=== PATIENT | male | born 2000 | race Caucasian/White ===

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

== ENCOUNTER 2023-03-13 18:20 | Emergency (ER) | payer OTHER, SELFPAY ==
--- NOTE | ~2023-03-13 | CT_ITS ---
EXAMINATION: CT ABDOMEN AND PELVIS WITH CONTRAST CLINICAL INFORMATION: Abdominal pain. Question of appendicitis. COMPARISON: 06/23/2020 TECHNIQUE: Multidetector volumetric images were obtained from the superior aspect of the liver through the pubic symphysis following administration 85 mL of Omnipaque 350 intravenous contrast. Sagittal and coronal reformatted images were obtained on the technologist's workstation. Oral contrast: No This CT examination was performed using dose optimization techniques as appropriate, variously including the following: *Automated exposure control *Adjustment of mA and/or kV according to patient size (this includes techniques or standardized protocols for targeted exams where dose is matched to indication/reason for exam; i.e. extremities or head) *Use of iterative reconstruction technique DLP: 349 mGy-cm FINDINGS: LUNG BASES: The visualized lung bases are unremarkable. LIVER, GALLBLADDER, AND BILIARY TREE: The liver is normal in size, shape, and attenuation. No focal hepatic lesion or biliary ductal dilatation is present. The gallbladder is unremarkable with no evidence of radiopaque gallstones, gallbladder wall thickening, or obvious pericholecystic inflammatory changes. PANCREAS: Unremarkable. SPLEEN: Unremarkable. ADRENAL GLANDS: Unremarkable. KIDNEYS AND URETERS: The kidneys are normal in size, shape, and attenuation. No hydronephrosis, hydroureter, or calculi seen. No perinephric stranding. BLADDER: Unremarkable. GASTROINTESTINAL TRACT: The small and large bowel are unremarkable. The appendix is normal. ABDOMINAL WALL: No significant hernia is appreciated. LYMPH NODES: Normal. VASCULAR: Unremarkable. PELVIC VISCERA: Unremarkable. OSSEOUS STRUCTURES: Unremarkable. CT/CT abdomen pelvis w IV con IMPRESSION: No acute findings within the abdomen or pelvis to explain the patient's symptomatology. Fleischner guidelines were followed.
--- NOTE | 2023-03-13 18:27 | ED_ITS ---
HPI - General Adult General Chief complaint: Fever Stated complaint: abd pain/v/d Time Seen by Provider: 03/13/23 22:28 Source: patient Mode of arrival: ambulatory Limitations: no limitations History of Present Illness HPI narrative: 22-year-old male presents to ED for abdominal pain, vomiting, and diarrhea since this morning. Patient states periumbilical pain. Patient denies any chest pain or shortness of breath. Patient denies anyone else at home having similar symptoms. Related Data Previous Rx's Medication Instructions Recorded ibuprofen 400 mg tablet 400 mg PO Q6H PRN pain #28 tabs 08/14/20 ondansetron HCl 4 mg tablet 4 mg PO Q6H PRN nausea and 08/14/20 (Zofran) vomiting #8 tabs Allergies Allergy/AdvReac Type Severity Reaction Status Date / Time No Known Allergies Allergy Verified 10/14/20 07:25 [No Known Allergies*] Review of Systems Review of Systems: Fever, abdominal pain, diarrhea, vomitting. PMFSH Past Medical History Medical History (Updated 03/14/23 @ 01:55 by LILIANA Kendrick) Anxiety Encounter for well adult exam without abnormal findings Gastritis Social History Social History (Updated 10/14/20 @ 07:27 by Jaja Osorio CMA) Household Members: Family Alcohol intake: never Smoked in Last 30 Days: No Use of substances other than those prescribed or required for medical reasons: No Substance Use Type: Marijuana Advance Directives: No Advance Directives Information Provided: Yes Current occupational status: employed Current occupation: [employer] [facility] [place] Physical Exam ED Vital Signs: Vital Signs - 24 hr 03/13/23 18:28 03/13/23 22:18 03/14/23 01:00 Temperature 97.9 F 98.0 F 98.5 F Pulse Rate 56 66 72 Respiratory Rate 18 16 18 Blood Pressure 126/62 115/59 L 125/68 Pulse Oximetry 100 96 100 Oxygen Delivery Method Room Air Room Air Room Air BMI result Body Mass Index 22.1 Const General: cooperative, healthy appearing, comfortable, no acute distress, well developed, alert, awake and Physically active Orientation/consciousness: oriented to person, oriented to place, oriented to time and patient oriented x3 HENMT Head: Yes normal to inspection, Yes No palpable skull fracture present, Yes normocephalic, Yes atraumatic and No abrasion Eyes General: appearance normal, both eyes and all related structures Neck Neck: Yes normal visual inspection, Yes full ROM, Yes no lymphadenopathy, Yes no meningeal signs, Yes trachea midline, Yes supple, No anterior neck swelling and No tender Chest Chest palpation & inspection: normal inspection of the chest and normal palpation of entire chest wall Resp Effort & Inspection: normal respiratory effort and able to speak in complete sentences Auscultation: clear to auscultation bilaterally Cardio Jugular venous distension: no JVD Heart sounds: S1 normal heart sound present and S2 normal heart sound present GI Inspection: Yes normal to inspection and No abdominal wall ecchymosis Palpation (GI): Soft to palpation, not firm, Tenderness to palpation present (GI) periumbilically, no guarding and not rigid General: No CVA tenderness and Yes no CVA tenderness Back/Spine/Pelvis Back: no CVA tenderness, No CVA tenderness and No back tenderness Skin General skin exam: no rashes or lesions noted, elasticity normal and turgor normal Neuro General: oriented to person, oriented to place, oriented to time, patient oriented x3, gait normal, tone normal, moves all extremities, Normal light touch and pain sensation, no meningeal signs, no focal motor deficits, CN's II-XI intact bilaterally and normal sensation to monofilament Extrem General: Yes normal to inspection and Yes full ROM Course Course Course Narrative: RME performed by Steffany Dover PA-C. Patient is a 22 year old assigned male at presenting to the emergency department with abdominal pain, nausea, and vomiting. Labs and swab ordered. Patient placed back in the waiting room pending room availability and results. Medications Administered Discontinued Medications Generic Name Dose Route Start Last Admin Trade Name Freq PRN Reason Stop Dose Admin Sodium Chloride 1,000 mls @ 999 mls/hr 03/13/23 22:47 03/13/23 23:06 Ns IV 03/13/23 23:47 999 mls/hr .Q1H1M STA Administration Iohexol 85 ml 03/13/23 23:23 03/13/23 23:23 Iohexol 350 Mg/Ml 100 Ml Infus..Btl IV 03/13/23 23:24 85 ml ONCE ONE Administration Medical Decision Making Medical Decision Making MDM Narrative: 22-year-old male presents to ED for nausea vomiting abdominal pain and diarrhea since this morning. Patient mild leukocytosis. With periumbilical tenderness sent for CT scan to rule out any appendicitis diverticulitis or any abdominal etiology. CT scan normal. Patient denies any genital urinary symptoms. UA negative for UTI. Viral gastroenteritis. Patient is safe for discharge. Patient received fluids. Patient's pain level improved to a 3. Patient racquet educated on brat diet Differential Diagnosis Differential Diagnoses: The differential diagnosis associated with the presentation includes (Appendicitis, colitis, UTI, kidney stone, diverticulitis, cholecystitis, pancreatitis) Admission/Observation Consideration of admission/observation: Escalation of care including admission/observation considered Lab Data MDM Lab Attestation statement: I reviewed the patient's lab results. 03/13/23 18:56 03/13/23 18:56 Labs: Lab Results 03/13/23 03/13/23 03/13/23 Range/Units 18:56 18:56 18:56 WBC 12.6 H (4.8-10.8) X10*3/uL RBC 5.33 (4.60-5.80) X10*6/uL Hgb 16.4 (14.0-18.0) g/dl Hct 45.0 (42.0-52.0) % MCV 84.4 (80.0-98.0) fL MCH 30.8 (27.0-33.0) pg MCHC 36.4 H (31.0-36.0) g/dl RDW 10.8 L (11.0-16.0) % Plt Count 380 (160-400) X10*3/uL MPV 8.5 L (9.4-12.4) fL Immature Gran % (Auto) 0.3 (0.0-0.4) % Neut % (Auto) 90.5 H (45-73) % Lymph % (Auto) 5.1 L (20-40) % Lynn % (Auto) 3.7 (2-11) % Eos % (Auto) 0.0 (0-4) % Baso % (Auto) 0.4 (0-2) % Lymph # (Auto) 0.6 L (1.2-4.9) X10*3/uL Lynn # (Auto) 0.5 (0.1-1.2) X10*3/uL Eos # (Auto) 0.0 (0.0-0.4) X10*3/uL Baso # (Auto) 0.1 (0.0-0.2) X10*3/uL Abs Immat Gran (auto) 0.04 H (0.00-0.03) X10*3/uL Absolute Neuts (auto) 11.4 H (2.0-8.3) x10*3/uL Absolute Nucleated RBC 0.000 (0.0-0.012) X10*3/uL Nucleated RBC % (auto) 0.0 (0.0-0.2) /100WBC Smear Tech's Comments VERIFIED Sodium 140 (135-145) mmol/L Potassium 4.1 (3.3-5.1) mmol/L Chloride 108 (96-108) mmol/L Carbon Dioxide 20 L (22-29) mmol/L Anion Gap 16 (12-20) BUN 10 (9-16) mg/dL Creatinine 0.91 (0.5-1.4) mg/dL Estim Creat Clear Calc 123.5 Estimated GFR > 60 Random Glucose 136 H (60-115) mg/dL Calcium 9.6 (8.4-10.2) mg/dL Magnesium 1.9 (1.6-2.6) mg/dL Total Bilirubin 0.7 (0.0-1.0) mg/dL AST 21 (5-37) U/L ALT 19 (0-40) U/L Alkaline Phosphatase 64 (39-117) U/L Total Protein 7.5 (6.5-8.0) g/dL Albumin 4.6 (3.5-5.0) g/dL Urine Color Urine Appearance Urine pH (5.0-9.0) Ur Specific [place] (1.005-1.025) Urine Protein (Neg-Trace) mg/dL Urine Glucose (UA) (Negative) mg/dL Urine Ketones (Negative) mg/dL Urine Blood (Negative) Urine Nitrite (Negative) Ur Leukocyte Esterase (Negative) COVID-19 ([facility]) Negative (Negative) COVID-19 Clin Com See Note 03/14/23 Range/Units 01:01 WBC (4.8-10.8) X10*3/uL RBC (4.60-5.80) X10*6/uL Hgb (14.0-18.0) g/dl Hct (42.0-52.0) % MCV (80.0-98.0) fL MCH (27.0-33.0) pg MCHC (31.0-36.0) g/dl RDW (11.0-16.0) % Plt Count (160-400) X10*3/uL MPV (9.4-12.4) fL Immature Gran % (Auto) (0.0-0.4) % Neut % (Auto) (45-73) % Lymph % (Auto) (20-40) % Lynn % (Auto) (2-11) % Eos % (Auto) (0-4) % Baso % (Auto) (0-2) % Lymph # (Auto) (1.2-4.9) X10*3/uL Lynn # (Auto) (0.1-1.2) X10*3/uL Eos # (Auto) (0.0-0.4) X10*3/uL Baso # (Auto) (0.0-0.2) X10*3/uL Abs Immat Gran (auto) (0.00-0.03) X10*3/uL Absolute Neuts (auto) (2.0-8.3) x10*3/uL Absolute Nucleated RBC (0.0-0.012) X10*3/uL Nucleated RBC % (auto) (0.0-0.2) /100WBC Smear Tech's Comments Sodium (135-145) mmol/L Potassium (3.3-5.1) mmol/L Chloride (96-108) mmol/L Carbon Dioxide (22-29) mmol/L Anion Gap (12-20) BUN (9-16) mg/dL Creatinine (0.5-1.4) mg/dL Estim Creat Clear Calc Estimated GFR Random Glucose (60-115) mg/dL Calcium (8.4-10.2) mg/dL Magnesium (1.6-2.6) mg/dL Total Bilirubin (0.0-1.0) mg/dL AST (5-37) U/L ALT (0-40) U/L Alkaline Phosphatase (39-117) U/L Total Protein (6.5-8.0) g/dL Albumin (3.5-5.0) g/dL Urine Color Yellow Urine Appearance Clear Urine pH 8.0 (5.0-9.0) Ur Specific [place] >= 1.030 H (1.005-1.025) Urine Protein Negative (Neg-Trace) mg/dL Urine Glucose (UA) Negative (Negative) mg/dL Urine Ketones 15 (Negative) mg/dL Urine Blood Negative (Negative) Urine Nitrite Negative (Negative) Ur Leukocyte Esterase Negative (Negative) COVID-19 ([facility]) (Negative) COVID-19 Clin Com Independent Interpretation I performed an independent interpretation of an: CT Scan Radiology Impression Discussion of test interpretation with radiology: I have reviewed the radiologist's reading. Prescription Management I considered prescription management with: Pain Medication Discharge Plan Discharge Clinical Impression: Gastroenteritis Patient Disposition: Home, Self-Care Instructions: Gastroenteritis (ED) Additional Instructions: Recommend oral hydration and brat diet ( Banna,rice, applesauce, and toast). Return to the ED for any worsening abdominal pain, fever, chills, diarrhea, blood in stool, dysuria, hematuria, or any other concerning symptoms. Please follow-up with primary care provider Prescriptions: No Action ondansetron HCl [Zofran] 4 mg tablet 4 mg PO Q6H PRN (Reason: nausea and vomiting) Qty: 8 0RF ibuprofen 400 mg tablet 400 mg PO Q6H PRN (Reason: pain) Qty: 28 0RF Stand Alone Forms: Work/School Release Print Language: Cymro
[2023-03-13 18:28] VITALS: BP 126/62; PULSE 56; RESP 18; TEMP 36.6; O2SAT 100; BMI 22.1
[2023-03-13 19:09] LABS: Basophils Absolute Auto 0.1 X10*3/uL (0.0-0.2); Basophils Percent Auto 0.4 % (0-2); Hemoglobin 16.4 g/dl (14.0-18.0); Imm Gran Abs Auto 0.04 X10*3/uL (0.00-0.03); Imm Gran Pct Auto 0.3 % (0.0-0.4); Lymphocytes Absolute Auto 0.6 X10*3/uL (1.2-4.9); Lymphocytes Percent Auto 5.1 % (20-40); MANUAL DIFF FLAG SCAN; Mean Corpuscular HGB Conc 36.4 g/dl (31.0-36.0); Mean Corpuscular Hemoglobin 30.8 pg (27.0-33.0); Mean Corpuscular Volume 84.4 fL (80.0-98.0); Mean Platelet Volume 8.5 fL (9.4-12.4); Monocytes Absolute Auto 0.5 X10*3/uL (0.1-1.2); Monocytes Percent Auto 3.7 % (2-11); Neutrophils Absolute Auto 11.4 x10*3/uL (2.0-8.3); Neutrophils Percent Auto 90.5 % (45-73); Platelet Count 380 X10*3/uL (160-400); Red Blood Count 5.33 X10*6/uL (4.60-5.80); Red Cell Distribution Width 10.8 % (11.0-16.0); SCAN SMEAR FLAG 1; White Blood Count 12.6 X10*3/uL (4.8-10.8)
[2023-03-13 19:16] LABS: COVID-19 Test Negative (Negative); IDNOW Serial# BCCEAD1C
[2023-03-13 19:29] LABS: SLIDE REVIEW VERIFIED
[2023-03-13 19:31] LABS: Alanine Aminotransferase 19 U/L (0-40); Albumin Level 4.6 g/dL (3.5-5.0); Alkaline Phosphatase 64 U/L (39-117); Anion Gap 16 (12-20); Aspartate Amino Transferase 21 U/L (5-37); Bilirubin Total 0.7 mg/dL (0.0-1.0); Blood Urea Nitrogen 10 mg/dL (9-16); Calcium 9.6 mg/dL (8.4-10.2); Carbon Dioxide 20 mmol/L (22-29); Chloride 108 mmol/L (96-108); Creatinine Clr Calc Pharmacy 123.5; Estimated Glomerular Filt Rate > 60; Glucose Random 136 mg/dL (60-115); Magnesium 1.9 mg/dL (1.6-2.6); Potassium 4.1 mmol/L (3.3-5.1); Sodium 140 mmol/L (135-145); Total Protein 7.5 g/dL (6.5-8.0)
[2023-03-13 22:18] VITALS: BP 115/59; PULSE 66; RESP 16; TEMP 36.7; O2SAT 96
[2023-03-13] MEDS: 0.9 % Sodium Chloride 1,000 ML 999 ML IV (23:06)
[2023-03-13] MEDS: iohexoL 350 MG/ML 100 ML INFUS..BTL 85 ML IV (23:23)
[2023-03-14 01:00] VITALS: BP 125/68; PULSE 72; RESP 18; TEMP 36.9; O2SAT 100
[2023-03-14 01:07] LABS: Appearance Urine Clear; Color Urine Yellow; Glucose Urine UA Negative (Negative); Leukocyte Esterase Urine Negative (Negative); Nitrite Urine Negative (Negative); Specific Gravity - Urine >= 1.030 (1.005-1.025); Urine Blood Negative (Negative); Urine Ketones 15 mg/dL (Negative); Urine Protein Negative (Neg-Trace)
--- NOTE | 2023-03-14 01:07 | PC.NURSE ---
Patient alert and oriented sitting on the edge of his bed. Patient states that his pain has resolved at this point. Patient at this time is well appearing.
--- NOTE | 2023-03-14 01:27 | MHC.EDTECH ---
Hourly rounds completed,vitals were taken and pt is sitting up in stretcher and watching TV on his phone. Call calero within reach
[2023-03-14 02:15] VITALS: BP 109/67; PULSE 57; RESP 18; O2SAT 98
== END 2023-03-14 02:17 | disposition home or self-care (01) ==
PROVIDERS: Physician Assistant Medical; Emergency Provider Internal Medicine; PCP Family Medicine
DX: K52.9 Noninfective gastroenteritis and colitis, unspecified (principal); R50.9 Fever, unspecified; R11.2 Nausea with vomiting, unspecified; R10.2 Pelvic and perineal pain; Z20.822 Contact with and (suspected) exposure to COVID-19; Z20.828 Contact with and (suspected) exposure to other viral communicable diseases; Z79.899 Other long term (current) drug therapy
CPT/HCPCS: 74177; 80053; 81003; 83735; 85025; 87635; 99284; Q9967

== ENCOUNTER 2024-02-03 08:28 | Outpatient (AMB) | payer OTHER, SELFPAY ==
[2024-02-03 09:01] VITALS: BP 122/76; PULSE 76; TEMP 36.7; O2SAT 98
--- NOTE | 2024-02-03 09:01 | MHC.OFFWIV ---
Intake Vital Signs 02/03/24 09:01 Height 5 ft 9 in BP 122/76 Blood Pressure Location Lt brachial Position Sitting Pulse 76 Pulse Source Pulse Oximeter Temp 98.0 F Temp Source Oral Pulse Oximetry (%) 98 Oxygen Delivery Method Room Air Intake Visit Reasons: EP Red spots/Stomach issues Intake Note: pt is here for red spots on back after being in sun playing basketball, patient is also here for concern about stomach issues Patient Tobacco Use Status: Current everyday Tobacco user Allergies No Known Allergies [No Known Allergies*] Allergy (Verified 02/03/24 09:05) Medication List - Last Reconciled 02/03/24 by Marga Dawson NP buspirone 5 mg PO BID econazole 1% 1 appl topical BID famotidine 20 mg PO DAILY ondansetron HCl (Zofran) 8 mg PO Q6H PRN Do you need a note to return to daycare/school/sports/work: No HPI HPI Comments History of Present Illness Details 23 y/o male patient who presents to walk in clinic with multiple problems. He is accompanied by Aunty. Pt c/o Nausea and vomiting, this is a chronic issue since the age of 89 years old. He has been evaluated by GI and testings done with normal results. He was also evaluated by Mental health provider, but no medications prescribed. He does admit to having Anxiety. He also does admit to smoking Marijuana daily (Atleast 2-3 joints a day). Pt also c/o generalized Rash on his Back x 1-2 weeks now. Denies itching, burning or pain. He does play basketball daily outside and he does admit to not showering after the games. [facility] Medical History (Updated 02/03/24 @ 10:03 by Marga Dawson NP) Encounter for well adult exam without abnormal findings Anxiety Gastritis Social History (Updated 10/14/20 @ 07:27 by Jaja Osorio CMA) Household Members: Family Alcohol intake: never Patient Tobacco Use Status: Current everyday Tobacco user Substance Use Type: Marijuana Current occupational status: employed [place]: [employer] [place] Review of Systems Const All systems reviewed & are unremarkable except as noted in HPI and below Physical Exam Vital Signs: Last Vital Signs Temp 98.0 F 02/03/24 09:01 Pulse 76 02/03/24 09:01 BP 122/76 02/03/24 09:01 Pulse Ox 98 02/03/24 09:01 Oxygen Delivery Method Room Air 02/03/24 09:01 Const General: comfortable and no acute distress Nutritional Appearance: thin and underweight Orientation/consciousness: patient oriented x3 GI Inspection: Yes normal to inspection and No distended Palpation (GI): Soft to palpation, not firm, nontender, no guarding, not rigid, No hepatosplenomegaly present, no hernias and no masses Skin Other: Small, discolored patches darker in color than the surrounding skin located on his upper Back. Full body images: 1. Small, discolored patches darker in color than the surrounding skin located on his upper Back. Neuro General: patient oriented x3, gait normal and moves all extremities Psych Speech and movement: Normal speech and movement present Assessment & Plan Assessment & Plan (1) Tinea corporis: Code(s): B35.4 - Tinea corporis Plan: Prescribed Econazole BID Take shower immediately after Basketball Keep skin dry and clean (2) Gastritis: Code(s): K29.70 - Gastritis, unspecified, without bleeding Qualifiers: Chronicity: chronic Gastritis bleeding: presence of bleeding unspecified Gastritis type: other gastritis Qualified Code(s): K29.50 - Unspecified chronic gastritis without bleeding Plan: Vomiting might be associated with Marijuana use (Cannabinoid Hyperemesis Syndrome). Advised to stop smoking weed for 2 weeks and see if symptoms improve Prescribed Zofran and Famotidine F/U with PCP if no improved. (3) Anxiety, generalized: Code(s): F41.1 - Generalized anxiety disorder Plan: Prescribed Buspar for Anxiety Pt will need to f/u with PCP for further management Recommended Mental Health F/U Medications: New econazole 1% 1 appl topical BID 85 grams 1RF B35.4 - Tinea corporis buspirone 5 mg PO BID 180 tabs 0RF F41.9 - Anxiety disorder, unspecified famotidine 20 mg PO DAILY 90 tabs 0RF K29.50 - Unspecified chronic gastritis without bleeding ondansetron 8 mg PO Q8H 90 tabs 1RF K29.50 - Unspecified chronic gastritis without bleeding Coding Level of Care Code Est Pt Level 4 (21263) Diagnoses Tinea corporis B35.4 Other chronic gastritis, presence of bleeding unspecified K29.50 Chronicity: chronic Gastritis bleeding: presence of bleeding unspecified Gastritis type: other gastritis Anxiety, generalized F41.1 Time Spent (min) 20
== END 2024-02-03 10:06 | disposition home or self-care (01) ==
PROVIDERS: PCP Family Medicine; Visit Provider Nurse Practitioner Family
DX: B35.4 Tinea corporis (principal); K29.50 Unspecified chronic gastritis without bleeding; F41.1 Generalized anxiety disorder
CPT/HCPCS: 99214

== ENCOUNTER 2024-02-17 15:07 | Outpatient (AMB) | payer OTHER, SELFPAY ==
--- NOTE | 2024-02-17 15:08 | A.OFFPC_ITS ---
Vital Signs 02/17/24 15:11 Height 5 ft 9 in Weight 146 lb BMI 21.6 BP 108/66 Blood Pressure Location Rt brachial Position Sitting Pulse 71 Pulse Source Pulse Oximeter Pulse Oximetry (%) 98 Oxygen Delivery Method Room Air Intake Visit Reasons: Est Care referral for stomach issues Intake Note: pt is here to establish care Allergies No Known Allergies [No Known Allergies*] Allergy (Verified 02/17/24 15:18) Medication List - Last Reconciled 02/17/24 by JOHANNA Auguste buspirone 5 mg PO BID famotidine 20 mg PO DAILY ketoconazole 2% 1 appl topical BID ondansetron 8 mg PO Q8H Tobacco use date assessed: 02/17/24 Dental Screening Dental Screen Date: 02/17/24 Did you have a dental visit in the last 12 months?: Yes Did you have a dental problem in the last 6 months where you did not have access to dental care?: No Was dental information given to patient?: Patient has dentist HPI HPI Comments History of Present Illness Details Patient is a 23-year-old male who I am meeting for the 1st time. Has a past medical history significant for gastritis, currently utilizing famotidine 20 mg p.r.n., as well as Zofran p.r.n.. Patient states that he did have emergency room visit 1 year prior for excessive vomiting, however has not had an episode in over 6-8 months. States that warm showers do help his nausea. Patient is up-to-date with Tdap. Will draw fasting labs. [facility] Medical History (Updated 02/17/24 @ 15:31 by JOHANNA Auguste) Encounter for well adult exam without abnormal findings Anxiety Gastritis Surgical History H/O inguinal hernia repair Social History Household Members: Family Housing: House Alcohol intake: never Patient Tobacco Use Status: Never used Tobacco e-Cigarette/Vaping Use: Currently Using Substance Use Type: Marijuana service: No Current occupational status: employed Current occupation: [employer] – [place], [place] Current occupational exposures/hazards: Yes Cognitive needs: No Hearing needs: No Vision needs: Yes Questionnaire PHQ-9 Over the last 2 weeks, how often have you been bothered by any of the following problems? 1. Little interest or pleasure in doing things: not at all 2. Feeling down, depressed, or hopeless: not at all 3. Trouble falling or staying asleep, or sleeping too much: not at all 4. Feeling tired or having little energy: not at all 5. Poor appetite or overeating: not at all 6. Feeling bad about yourself - or that you are a failure or have let yourself or your family down: not at all 7. Trouble concentrating on things, such as reading the newspaper or watching television: not at all 8. Moving or speaking so slowly that other people could have noticed. Or the opposite - being so fidgety or restless that you have been moving around a lot more than usual: not at all 9. Thoughts that you would be better off or of hurting yourself in some way: not at all Total score: 0 Depression Screening Interpretation: Negative Depression Screening Done: Yes 50659 - PHQ-9 Billing: Yes Source: Developed by Drs. Aguilar Javier, Monica Parker, Casper Bean and colleagues, with an educational sunshine from [employer]. Thrive Questionnaire Date Thrive assessed: 02/17/24 I am a: Patient What is your living situation today?: I have a steady place to live Within the past 12 months, did the food you bought not last and you didn't have the money to get more?: Never true Within the past 12 months, did you worry whether your food would run out before you got money to buy more?: Never true Do you have trouble paying for medicines?: No Do you have trouble getting transportation to medical appointments?: No Do you have trouble paying your heating and electricity bill?: No Do you have trouble taking care of your child, family member or friend?: No Do you have trouble with day-to-day activities such as bathing, preparing meals, shopping, managing finances, etc.?: No Are you currently unemployed and looking for a job?: No Are you interested in more education?: No Please select the resources that you would like help with: None Currently or been in a relationship where the following occur: No concerns reported THRIVE Score: 0 AUDIT C Alcohol Use Questionnaire (AUDIT-C) 1. How often do you have a drink containing alcohol?: Monthly or less 2. How many drinks containing alcohol do you have on a typical day when you are drinking?: 1 or 2 3. How often do you have six or more drinks on one occasion?: Never Total Score: 1 KACEY-7 AMB Questionnaire KACEY-7 Date KACEY - 7 assessed: 02/17/24 Feeling nervous, anxious, or on edge: 0 = Not at all Not being able to stop or control worryin = Not at all Worrying too much about different things: 0 = Not at all Trouble relaxin = Not at all Being so restless that it is hard to sit still: 0 = Not at all Becoming easily annoyed or irritable: 0 = Not at all Feeling afraid as if something awful might happen: 0 = Not at all Total KACEY-7 score (0-4 normal; 5-9 mild; 10-14 moderate; 15-21 severe): 0 Source: Developed by Drs. Aguilar Javier, Monica Parker, Casper Bean and colleagues, with an educational sunshine from [employer]. KACEY-7 Assessment Billing KACEY-7 Assessment Tool: KACEY-7 Assessment 21429 Review of Systems Const All systems reviewed & are unremarkable except as noted in HPI and below Physical exam (Primary Care) Vital Signs: Last Vital Signs Pulse 71 02/17/24 15:11 BP 108/66 02/17/24 15:11 Pulse Ox 98 02/17/24 15:11 Oxygen Delivery Method Room Air 02/17/24 15:11 BMI result Body Mass Index 21.6 Tobacco/Smoking Status: Tobacco use Status Tobacco use date assessed 02/17/24 02/17/24 15:15 Patient Tobacco Use Status Never used Tobacco 02/17/24 15:15 e-Cigarette/Vaping Use Currently Using 02/17/24 15:15 PHQ-9: PHQ-9 Score PHQ-9: Total score 0 02/17/24 15:15 Depression Screening Interpretation: Negative Thrive Assessment: Date of Thrive Assessment Date Thrive assessed 02/17/24 02/17/24 15:16 Currently or been in a relationship where the following occur: No concerns reported Const Other: Appearance: Alert.? Oriented X3.? No acute distress.? Head: Normocephalic, atraumatic, no step-offs or deformities CVS: Normal heart rate and rhythm.? Pulses normal.? Respiratory: No respiratory distress.? Breath sounds normal.? Abdomen: Soft and nontender.? Skin: Skin warm and dry.? Normal skin color.? Normal skin turgor.? Extremities: No lower extremity edema.? No calf ttp. 5/5 strength to bilateral upper and lower extremities Back: No midline tenderness, no C-spine tenderness, full range of motion, no CVA tenderness bilaterally Neuro: Oriented X 3.? No motor deficit.? No sensory deficit. CN 2-12 intact Assessment and Plan Assessment & Plan (1) Gastritis: Comment: Patient utilizing famotidine p.r.n. with good effect. Patient intermittently ondansetron has not used in the past 6 months. Patient has been educated that marijuana can exacerbate this issue. Code(s): K29.70 - Gastritis, unspecified, without bleeding Qualifiers: Gastritis type: other gastritis Chronicity: chronic Gastritis bleeding: presence of bleeding unspecified Qualified Code(s): K29.50 - Unspecified chronic gastritis without bleeding Plan: Will draw labs. Plan Follow-up with physical exam in a month's Orders: Orders Vitamin D 25-OH (D2 and D3) Today Z13.21 - Encounter for screening for nutritional disorder Vitamin B12 Today Z13.21 - Encounter for screening for nutritional disorder UA CC w/rflx Micro + Cult Today Z13.89 - Encounter for screening for other disorder TSH reflex Free T4 Today Z13.29 - Encounter for screening for other suspected endocrine disorder Lipid Panel Today Z13.220 - Encounter for screening for lipoid disorders Vitamin B6 Today Z13.21 - Encounter for screening for nutritional disorder Complete Blood Count Auto Diff Today Z13.0 - Encounter for screening for diseases of the blood and blood-forming organs and certain disorders involving the immune mechanism Comprehensive Met. Panel Today Z91.89 - Other specified personal risk factors, not elsewhere classified Coding Level of Care Code Est Pt Level 3 (70369) Diagnoses Other chronic gastritis, presence of bleeding unspecified K29.50 Gastritis type: other gastritis Chronicity: chronic Gastritis bleeding: presence of bleeding unspecified Additional Codes KACEY-7 Assessment Billing - KACEY-7 Assessment Tool: KACEY-7 Assessment 74537 ([id number]) Time Spent (min) 25
[2024-02-17 15:11] VITALS: BP 108/66; PULSE 71; O2SAT 98; BMI 21.6
== END 2024-02-17 15:37 | disposition home or self-care (01) ==
PROVIDERS: PCP Family Medicine; Visit Provider Nurse Practitioner Primary Care
DX: K29.50 Unspecified chronic gastritis without bleeding (principal)
CPT/HCPCS: 99213

== ENCOUNTER 2024-08-28 12:37 | Outpatient (AMB) | payer OTHER, SELFPAY ==
--- NOTE | 2024-08-28 12:40 | A.OFFPC_ITS ---
Vital Signs 08/28/24 12:41 Height 5 ft 9 in Weight 146 lb BMI 21.6 BP 104/74 Blood Pressure Location Rt brachial Position Sitting Pulse 71 Pulse Source Pulse Oximeter Pulse Oximetry (%) 97 Oxygen Delivery Method Room Air Intake Visit Reasons: transfer from [facility] Intake Note: Pt is here today for Establish care visit from [facility]. Allergies No Known Allergies [No Known Allergies*] Allergy (Verified 08/28/24 12:43) Tobacco use date assessed: 08/28/24 Dental Screening Dental Screen Date: 08/28/24 Did you have a dental visit in the last 12 months?: Yes Did you have a dental problem in the last 6 months where you did not have access to dental care?: No Was dental information given to patient?: Patient has dentist HPI transfer from [facility] HPI Details Chief Complaint Generalized abdominal discomfort and vomiting History of Present Illness The patient is a 24-year-old male presenting with a history of gastritis. He has previously seen a multi media specialist and undergone an endoscopy, which reportedly found no abnormalities according to pt. The patient is currently experiencing generalized abdominal discomfort and episodes of vomiting. He reports that vomiting provides symptomatic relief, and denies any association with eating specific foods. Symptoms are not accompanied by blood in stool or vomitus, diarrhea, constipation, fever, or chills. He has been managing his condition with famotidine, which provides some relief. No changes in symptoms' intensity or frequency have been reported. Social History Health Maintenance Review of Systems - Gastrointestinal: Reports abdominal di scomfort and vomiting. Physical Exam General: Cooperative, healthy appearing, comfortable, no acute distress and well developed Orientation: Patient oriented x3 Limitations: No limitations Head: Normal to inspection Ears: Hearing grossly normal bilaterally Nose: Normal external nose present Face and sinus: Normal facial exam Eyes: Appearance normal, both eyes and all related structures Neck: Normal visual inspection and Yes full ROM Respiratory: Normal respiratory effort and able to speak in complete sentences. Clear to auscultation bilaterally Cardiovascular: Regular rate and rhythm. Normal S1 and S2 GI: normal to inspection. Soft to palpation and nontender, BSX4 Skin: No rashes or lesions noted Neuro: Patient oriented x3 Extremities: Normal to inspection Results Plan - Initiate treatment with proton pump in hibitor PPI) separate from famotidine by 12 hours. - Continue current famotidine regimen. - Schedule laboratory tests for future e valuation. - Plan for annual physical examination. Patient was informed and verbally consented to the use of an ambient scribe for clinic note documentation during this visit. Discussion Notes I discussed with the patient the continued management of his gastritis. We agreed to initiate a proton pump inhibitor and stagger its administration with famotidine by 12 hours to optimize efficacy. I instructed him on the importance of reporting any changes in symptoms or lack of improvement. We also planned to add lab tests in the near future to monitor his condition. Additionally, an annual physical examination will help in his overall health maintenance. Patient Instructions - Follow the prescribed PPI schedule, se parating it from famotidine by 12 hours. - Continue taking famotidine as already prescribed. - Contact me if symptoms do not improve or if there are any new symptoms. - Expect to complete lab tests as instru cted. - Schedule an appointment for an annual physical exam next year. [facility] Medical History (Updated 08/28/24 @ 13:03 by JOHANNA Zelaya-) Encounter for well adult exam without abnormal findings Anxiety Gastritis Surgical History H/O inguinal hernia repair Social History Household Members: Family Housing: House Alcohol intake: never Patient Tobacco Use Status: Never used Tobacco e-Cigarette/Vaping Use: Currently Using Substance Use Type: Marijuana service: No Current occupational status: employed Current occupation: [employer] – [place] Current occupational exposures/hazards: Yes Cognitive needs: No Hearing needs: No Vision needs: Yes Questionnaire PHQ-9 Over the last 2 weeks, how often have you been bothered by any of the following problems? 1. Little interest or pleasure in doing things: not at all 2. Feeling down, depressed, or hopeless: not at all 3. Trouble falling or staying asleep, or sleeping too much: not at all 4. Feeling tired or having little energy: not at all 5. Poor appetite or overeating: not at all 6. Feeling bad about yourself - or that you are a failure or have let yourself or your family down: not at all 7. Trouble concentrating on things, such as reading the newspaper or watching television: not at all 8. Moving or speaking so slowly that other people could have noticed. Or the opposite - being so fidgety or restless that you have been moving around a lot more than usual: not at all 9. Thoughts that you would be better off or of hurting yourself in some way: not at all Total score: 0 Depression Screening Interpretation: Negative Depression Screening Done: Yes 49501 - PHQ-9 Billing: Yes Source: Developed by Drs. Aguilar Javier, Monica Parker, Casper Bean and colleagues, with an educational sunshine from [employer]. Thrive Questionnaire Date Thrive assessed: 08/28/24 I am a: Patient What is your living situation today?: I have a steady place to live Within the past 12 months, did the food you bought not last and you didn't have the money to get more?: Never true Within the past 12 months, did you worry whether your food would run out before you got money to buy more?: Never true Do you have trouble paying for medicines?: No Do you have trouble getting transportation to medical appointments?: No Do you have trouble paying your heating and electricity bill?: No Do you have trouble taking care of your child, family member or friend?: No Do you have trouble with day-to-day activities such as bathing, preparing meals, shopping, managing finances, etc.?: No Are you currently unemployed and looking for a job?: No Are you interested in more education?: No Please select the resources that you would like help with: None Currently or been in a relationship where the following occur: No concerns reported THRIVE Score: 0 AUDIT C Alcohol Use Questionnaire (AUDIT-C) 1. How often do you have a drink containing alcohol?: 2-4 times a month 2. How many drinks containing alcohol do you have on a typical day when you are drinking?: 3 or 4 3. How often do you have six or more drinks on one occasion?: Less than monthly Total Score: 4 KACEY-7 AMB Questionnaire KACEY-7 Date KACEY - 7 assessed: 08/28/24 Feeling nervous, anxious, or on edge: 0 = Not at all Not being able to stop or control worryin = Not at all Worrying too much about different things: 0 = Not at all Trouble relaxin = Not at all Being so restless that it is hard to sit still: 0 = Not at all Becoming easily annoyed or irritable: 0 = Not at all Feeling afraid as if something awful might happen: 0 = Not at all Total KACEY-7 score (0-4 normal; 5-9 mild; 10-14 moderate; 15-21 severe): 0 Source: Developed by Drs. Aguilar Javier, Monica Parker, Casper Bean and colleagues, with an educational sunshine from [employer]. KACEY-7 Assessment Billing KACEY-7 Assessment Tool: KACEY-7 Assessment 30283 Physical exam (Primary Care) Vital Signs: Last Vital Signs Pulse 71 08/28/24 12:41 BP 104/74 08/28/24 12:41 Pulse Ox 97 08/28/24 12:41 Oxygen Delivery Method Room Air 08/28/24 12:41 BMI result Body Mass Index 21.6 Tobacco/Smoking Status: Tobacco use Status Tobacco use date assessed 08/28/24 08/28/24 12:46 Patient Tobacco Use Status Never used Tobacco 08/28/24 12:46 e-Cigarette/Vaping Use Currently Using 08/28/24 12:46 PHQ-9: PHQ-9 Score PHQ-9: Total score 0 08/28/24 12:46 Depression Screening Interpretation: Negative Thrive Assessment: Date of Thrive Assessment Date Thrive assessed 08/28/24 08/28/24 12:46 Currently or been in a relationship where the following occur: No concerns reported Coding Level of Care Code Est Pt Level 3 (74370) Diagnoses Other chronic gastritis, presence of bleeding unspecified K29.50 Chronicity: chronic Gastritis bleeding: presence of bleeding unspecified Gastritis type: other gastritis Additional Codes KACEY-7 Assessment Billing - KACEY-7 Assessment Tool: KACEY-7 Assessment 48708 ([id number]) PHQ-9 - 56867 - PHQ-9 Billing: Yes ([id number]) Assessment & Plan Assessment & Plan (1) Gastritis: Code(s): K29.70 - Gastritis, unspecified, without bleeding Category: Medical Qualifiers: Chronicity: chronic Gastritis bleeding: presence of bleeding unspecified Gastritis type: other gastritis Qualified Code(s): K29.50 - Unspecified chronic gastritis without bleeding Plan . Orders: Orders UA CC w/rflx Micro + Cult Today K29.50 - Unspecified chronic gastritis without bleeding Complete Blood Count Auto Diff Today K29.50 - Unspecified chronic gastritis without bleeding Comprehensive [place]. Panel Fast Today K29.50 - Unspecified chronic gastritis without bleeding TSH reflex Free T4 Today K29.50 - Unspecified chronic gastritis without bleeding Lipid Panel Today K29.50 - Unspecified chronic gastritis without bleeding Medications: New pantoprazole 20 mg PO DAILY 30 tabs 3RF 30 days
[2024-08-28 12:41] VITALS: BP 104/74; PULSE 71; O2SAT 97; BMI 21.6
== END 2024-08-28 14:02 | disposition home or self-care (01) ==
PROVIDERS: PCP Family Medicine; Visit Provider Nurse Practitioner Family
DX: K29.50 Unspecified chronic gastritis without bleeding (principal)

== ENCOUNTER → 2024-08-28 12:37 | Outpatient (BNVA) | payer OTHER, SELFPAY | PROVIDERS: PCP Family Medicine; Visit Provider Nurse Practitioner Family | DX: K29.50 Unspecified chronic gastritis without bleeding (principal) | CPT/HCPCS: 96127 ==

== ENCOUNTER 2025-01-20 16:35 | Emergency (ER) | payer OTHER, SELFPAY ==
--- NOTE | ~2025-01-20 | XR_ITS ---
CLINICAL HISTORY: swelling pain over right 5th mcp 3 view right hand Comparison: None Findings: No fractures or dislocations. No significant arthritic change. No erosions. No radiopaque foreign body. Soft tissue swelling over the dorsum of the 5th metacarpal. IMPRESSION: No acute fracture deformity. No erosions. Soft tissue swelling over the dorsum of the 5th metacarpal. This document has been electronically signed by: Acosta Joyner MD on 01/20/2025 17:08:05
[2025-01-20 16:37] VITALS: BP 129/66; PULSE 94; RESP 18; TEMP 37; O2SAT 95; BMI 23.6
--- NOTE | 2025-01-20 16:37 | ED.UPPEXIN ---
HPI - Extremity Injury (Upper) General Chief Complaint: Wound/Laceration Stated Complaint: rt hand wound Time Seen by Provider: 01/20/25 16:46 Source: patient and RN notes reviewed Mode of arrival: ambulatory Limitations: no limitations History of Present Illness ED Provider: Yulisa Gallagher PA-C HPI narrative: This is a 24-year-old male who presents emergency department with complaints of right hand pain and swelling since yesterday. Patient states that he was upset and punched a tree last night. He states that he ultimately lacerated his hand on the tree. Patient's last tetanus shot was in 2020. He is right-hand dominant. Denies taking any medications prior to his arrival. No other complaints or concerns at this time. MD complaint: injury to: right and hand Onset (ago): day(s) Other Extremity Injury: right: hand Handedness: right Place: outdoors Severity: moderate Relieving factors: immobilization and rest Exacerbating factors: movement of extremity Context: direct blow Associated symptoms: denies other symptoms Related Data Previous Rx's ?Medication ?Instructions ?Recorded famotidine 20 mg tablet 20 mg PO DAILY #90 tabs 02/03/24 ketoconazole 2 % topical cream 1 appl topical BID #30 grams 02/03/24 ondansetron 8 mg disintegrating 8 mg PO Q8H #90 tabs 02/03/24 tablet pantoprazole 20 mg tablet,delayed 20 mg PO DAILY 30 days #30 tabs 08/28/24 release acetaminophen 500 mg tablet 500 - 1,000 mg (1 - 2 x 500 mg) PO 01/20/25 (Tylenol Extra Strength) Q6H PRN pain #30 tabs amoxicillin 875 mg-potassium 1 tab PO BID 7 days #14 tabs 01/20/25 clavulanate 125 mg tablet ibuprofen 600 mg tablet 600 mg PO Q6H #30 tabs 01/20/25 Allergies Allergy/AdvReac Type Severity Reaction Status Date / Time No Known Allergies Allergy Verified 01/20/25 16:39 [No Known Allergies*] Review of Systems Review of Systems: Yes all other systems are reviewed and are negative Constitutional: Constitutional: Reports as per [facility] Past Medical History Attestation statement: The following information was validated with the patient. Medical History Encounter for well adult exam without abnormal findings Anxiety Gastritis Surgical History H/O inguinal hernia repair Social History Social History Household Members: Family Housing: House Alcohol intake: never Patient Tobacco Use Status: Never used Tobacco e-Cigarette/Vaping Use: Currently Using Substance Use Type: Marijuana Advance Directives: No Advance Directives Information Provided: No service: No Current occupational status: employed Current occupation: [employer] [place] Current occupational exposures/hazards: Yes Cognitive needs: No Hearing needs: No Vision needs: Yes Physical Exam Vital Signs: Vital Signs: Last Vital Signs Temp 98.3 F 01/20/25 17:40 Pulse 66 01/20/25 17:40 Resp 13 01/20/25 17:40 BP 118/74 01/20/25 17:40 Pulse Ox 97 01/20/25 17:40 O2 Del Method Room Air 01/20/25 17:40 BMI result Body Mass Index 23.6 Const: General: cooperative, comfortable and no acute distress Orientation/consciousness: patient oriented x3 Limitations: no limitations HEENT: Head: Yes normal to inspection, Yes normocephalic and Yes atraumatic Ears: hearing grossly normal bilaterally General nose exam: Normal external nose present Face and sinus: Yes normal facial exam Mouth: Normal oral and palatal mucosa present, oropharynx normal and moist mucous membranes Throat: Yes posterior oropharynx normal Eyes: General: appearance normal, both eyes and all related structures Eyelids: Yes eyelids normal Conjunctivae: conjunctivae normal Sclerae: sclerae normal Pupils: Equal, round and reactive pupils present EOM: EOMs intact bilaterally Neck: Neck: Yes normal visual inspection, Yes full ROM and Yes no lymphadenopathy Lymphatic: no lymphadenopathy noted Chest: Chest palpation & inspection: normal inspection of the chest Resp: Effort & Inspection: normal respiratory effort and able to speak in complete sentences Auscultation: clear to auscultation bilaterally, no crackles, no rales, no rhonchi and no wheezes Cardio: Rate: regular rate Rhythm: regular rhythm Heart sounds: S1 normal heart sound present and S2 normal heart sound present GI: Inspection: Yes normal to inspection Skin: General skin exam: no rashes or lesions noted Trauma: no lacerations or abrasions Wounds: no wounds Neuro: General: patient oriented x3 and moves all extremities Cranial nerves: Yes Equal, round and reactive pupils present Extrem: Other: Right hand dorsal aspect overlying the distal metacarpals, there is scattered superficial abrasions noted, superficial abrasion noted to the 3rd and 4th digit, full ROM of all digits. He does have moderate edema noted to the dorsum of the hand with tenderness palpation along the 4th and 5th metacarpal. Strong radial pulse. Capillary refill less than 2 seconds. Wrist is nontender. Full range of motion of the wrist. Left hand with superficial abrasion noted overlying the distal 4th metacarpal bone, no active bleeding, full ROM, nontender. Strong radial pulse. General: Yes normal to inspection Left upper extremity: normal to inspection Right lower extremity: normal to inspection Left lower extremity: normal to inspection Course Course Course Narrative: Malu Diana APRN This is a rapid medical exam. Deferred additional HPI, ROS, PE to primary provider. 24 yo male no known medical history right hand dominant here with complaints of abrasions to bilateral hands, swelling and pain to right hand after punching a tree. Tetanus unsure of Swelling to right hand with TTP over right 5th MCP. Will check x-rays VSS Medications Administered Discontinued Medications Generic Name Dose Route Start Last Admin Trade Name Freq PRN Reason Stop Dose Admin Amoxicillin/Clavulanate Potassium 875 mg 01/20/25 17:29 01/20/25 17:35 Amoxicillin/Potassium Clav 875 Mg Tablet PO 01/20/25 17:30 875 mg ONCE ONE Administration Ibuprofen 600 mg 01/20/25 16:53 01/20/25 16:55 Ibuprofen 600 Mg Tablet PO 01/20/25 16:54 600 mg ONCE ONE Administration Medical Decision Making Medical Decision Making [facility] Narrative: This is a 24-year-old male who presents to the emergency department with complaints of right hand pain after punching a tree after becoming upset yesterday. Patient is right-hand dominant. He has tenderness palpation along the 4th and 5th metacarpal bones. Also with superficial abrasions scattered throughout the hand. No deep lacerations requiring suture repair. His tetanus is up-to-date. Differential diagnoses include fracture, contusion, abrasion, foreign body. We will obtain x-rays to rule out any bony abnormalities. 1712 - x-ray returns, revealing soft tissue swelling over the 5th metacarpal bone, however no fractures appreciated. Wounds will be cleansed with saline and Betadine, and dressed with bacitracin. We will also give Rodolfo wrap, and discharged on antibiotics. Differential Diagnosis Differential Diagnoses: The differential diagnosis associated with the presentation includes See above Radiology Impression Discussion of test interpretation with radiology: I have reviewed the radiologist's reading. Radiologist Impression: CLINICAL HISTORY: swelling pain over right 5th mcp 3 view right hand Comparison: None Findings: No fractures or dislocations. No significant arthritic change. No erosions. No radiopaque foreign body. Soft tissue swelling over the dorsum of the 5th metacarpal. IMPRESSION: No acute fracture deformity. No erosions. Soft tissue swelling over the dorsum of the 5th metacarpal. This document has been electronically signed by: Acosta Joyner MD on 01/20/2025 17:08:05 Dictated By: Acosta Joyner MD Discharge Plan Discharge Clinical Impression: Contusion of hand, right Patient Disposition: Home, Self-Care Instructions: Contusion in Adults (ED) Additional Instructions: You were seen in the emergency department due to hand pain. Your x-ray does not show an any broken bones. The wounds that you have on your hands do not require sutures. Please keep wounds clean and dry. Watch for any signs of infection including but not limited to increased redness, drainage, fevers or chills. If any of these occur, please return for re-evaluation. I am starting you on a course of antibiotics to prevent infection. Please take as prescribed. If any new or worsening symptoms occur including but not limited to increased redness, pain, swelling, fevers or chills, please return. Rest, ice, and elevate your hand. You may follow-up with the family development extension specialist if you continue to have pain in your hand. Call to make an appointment. Take ibuprofen and or Tylenol as needed for pain. You may take ibuprofen 600 mg every 6 hours, and Tylenol 500 mg to 1000 mg every 6-8 hours as needed for pain. Prescriptions: New ibuprofen 600 mg tablet 600 mg PO Q6H Qty: 30 0RF acetaminophen [Tylenol Extra Strength] 500 mg tablet 500 - 1,000 mg PO Q6H PRN (Reason: pain) Qty: 30 0RF amoxicillin-pot clavulanate 875-125 mg tablet 1 tab PO BID 7 Days Qty: 14 0RF No Action ketoconazole 2 % cream 1 appl topical BID Qty: 30 0RF famotidine 20 mg tablet 20 mg PO DAILY Qty: 90 0RF ondansetron 8 mg tablet,disintegrating 8 mg PO Q8H Qty: 90 1RF pantoprazole 20 mg tablet,delayed release (DR/EC) 20 mg PO DAILY 30 Days Qty: 30 3RF Referrals: [facility] [place] [facility] [Provider Group] Print Language: Kyrgyz
[2025-01-20] MEDS: Ibuprofen 600 MG TABLET PO (16:55)
[2025-01-20] MEDS: Amoxicillin/Potassium Clav 875 MG TABLET PO (17:35)
[2025-01-20 17:40] VITALS: BP 118/74; PULSE 66; RESP 13; TEMP 36.8; O2SAT 97
--- NOTE | 2025-01-20 17:56 | PC.NURSE ---
patient a&ox3, vss, pts lacs were cleaned and wrapped, pt medicated per order, pt to discharge home
[2025-01-20 18:01] VITALS: BP 118/74; PULSE 66; RESP 13; TEMP 36.8; O2SAT 97
== END 2025-01-20 18:03 | disposition home or self-care (01) ==
PROVIDERS: Emergency Provider Internal Medicine; PCP Family Medicine
DX: S60.221A Contusion of right hand, initial encounter (principal); W22.09XA Striking against other stationary object, initial encounter; M79.641 Pain in right hand; Y93.89 Activity, other specified; Y92.410 Unspecified street and highway as the place of occurrence of the external cause; Y99.9 Unspecified external cause status
CPT/HCPCS: 73130; 99283

== ENCOUNTER → 2025-01-20 16:39 | Outpatient (BNV) | payer OTHER, SELFPAY | PROVIDERS: Emergency Provider Internal Medicine; PCP Family Medicine; Visit Provider Radiology Diagnostic Radiology | DX: M70.841 Other soft tissue disorders related to use, overuse and pressure, right hand (principal) | CPT/HCPCS: 73130 ==